=== PATIENT | male | born 1995 | race Caucasian/White ===

== ENCOUNTER 2025-02-05 20:09 | Emergency (ER) | payer SELFPAY ==
[2025-02-05 20:40] VITALS: BP 151/93; PULSE 76; RESP 16; TEMP 36.8; O2SAT 97; BMI 27.9
--- NOTE | 2025-02-05 22:09 | CT_ITS ---
PROCEDURE INFORMATION: Exam: CT Lumbar Spine Without Contrast Exam date and time: 02/05/2025 10:24 PM Age: 29 years old Clinical indication: Pain; Lumbago with sciatica; Left; Additional info: Radicular pain down back of leg L side TECHNIQUE: Imaging protocol: Computed tomography of the lumbar spine without contrast. Radiation optimization: All CT scans at this facility use at least one of these dose optimization techniques: automated exposure control; mA and/or kV adjustment per patient size (includes targeted exams where dose is matched to clinical indication); or iterative reconstruction. COMPARISON: No relevant prior studies available. FINDINGS: Limitations: Axial soft tissue window of the lumbar spine is missing. Within this limitation: Bones/joints: Minimal retrolisthesis of L5 on S1. Mild levocurvature of the lumbar spine. The alignment is otherwise maintained. The body heights are maintained. No evidence of acute fracture. Mild multilevel degenerative disc and joint disease as follows:. At L1-L2: Minimal disc bulge. The spinal canal is patent. Minimal facet arthropathy. No high-grade neural foraminal stenosis. At L2-L3: Diffuse disc bulge. Mild hypertrophy of the ligamentum flavum. No high-grade spinal canal stenosis. Bilateral facet arthrosis. No neural foraminal stenosis. At L3-L4: Minimal disc bulge. Minimal epididymal ligamentum flavum. No high-grade spinal canal stenosis. Bilateral facet arthrosis. Minimal bilateral neural foraminal narrowing. No high-grade neural foraminal stenosis. At L4-L5: Diffuse disc bulge and superimposed large left central/paracentral disc protrusion resulting in moderate or moderate to severe spinal canal stenosis on the left aspect of the spinal canal and severe left lateral recess stenosis with compression of the traversing left L5 nerve root in the left lateral recess. Bilateral facet arthropathy. Mild bilateral neural foraminal stenosis. At L5-S1: Diffuse disc bulge/disc osteophyte complex, eccentric to the left. There is minimal epidural the ligamentum flavum. There is mild spinal canal stenosis. No high-grade spinal canal stenosis. Mild left lateral recess narrowing. Bilateral facet arthrosis. Mild bilateral neural foraminal stenosis. Soft tissues: Unremarkable. IMPRESSION: Multilevel degenerative disc and joint disease of the lumbar spine as detailed level by level above, worst at L4-L5 where there is diffuse disc bulge and superimposed large left paracentral disc protrusion resulting in moderate or moderate to severe spinal canal stenosis particularly on the left side with severe left lateral recess stenosis resulting in compression on the traversing left L5 nerve root in the left lateral recess.
[2025-02-05] MEDS: KETOROLAC 30MG/ML VIAL 30 MG IM (23:00)
[2025-02-05] MEDS: ACETAMINOPHEN 500MG TAB 1000 MG PO (23:01)
[2025-02-05] MEDS: LIDOCAINE 5% TRANSDERMAL PATCH 1 EACH TD (23:01)
[2025-02-05] MEDS: METHOCARBAMOL 500MG TABLET 1000 MG PO (23:01)
--- NOTE | 2025-02-05 23:33 | ED_ITS ---
Discharge Plan Disposition Patient Disposition: Home, Self-Care Prescriptions Prescriptions: New lidocaine 4 % adhesive patch,medicated 1 patch topical DAILY PRN (Reason: pain) Qty: 30 0RF methocarbamol 500 mg tablet 1,000 mg PO Q8H PRN (Reason: muscle pain and spasm) Qty: 30 0RF Referrals Follow up/Referrals: Provider,Referral, [Primary Care Provider] - See instructions Activity Restrictions/Add. Instructions Additional Instructions/Restrictions: At this time it was felt you are safe to be discharged home. If new or worsening symptoms please do not hesitate to return the emergency department. Please take your medications as prescribed, stay off work until Friday and at Friday perform light duty until you follow-up with your family doctor on to determine a long-term plan. Talk to primary care doctor about scheduling an MRI. Do not drive or operate machinery after taking the methocarbamol. It may make you sleepy. Clinical Impressions Clinical Impression: Back pain Stand Alone Forms Stand Alone Forms: Work/School Release Print Language Print Language: Irish Discharge ED Provider: Chinmay Montgomery General Adult HPI <Chinmay Montgomery MD - Last Filed: 02/05/25 23:38> General Chief complaint: PAIN Stated complaint: lower back pain with pain down left leg Time Seen by Provider: 02/05/25 21:00 Mode of Arrival: Ambulatory Description of Symptoms (Recalled from ER Triage Doc. by RN): Pt presents with c/o left lower back pain x 2.5 weeks that radiates down his left leg. Denies numbness/tingling History of Present Illness HPI narrative: Patient is a 29-year-old male with no pertinent past medical history who presents emergency department for evaluation of back pain. 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 He had some back pain in his left lower back and was doing a stretch of hyperextension of his back on [employer] for which he acutely had worsening of his pain. His pain starts in his left paraspinal area and shoots down his buttocks down his left lower extremity. He is able to walk with pain. No significant trauma. No other acute complaints at this time. Related Data Previous Rx's ?Medication ?Instructions ?Recorded lidocaine 4 % topical patch 1 patch topical DAILY PRN pain #30 02/05/25 ea methocarbamol 500 mg tablet 1,000 mg (2 x 500 mg) PO Q8H PRN 02/05/25 muscle pain and spasm #30 tabs Allergies Allergy/AdvReac Type Severity Reaction Status Date / Time NO KNOWN ALLERGIES Allergy Uncoded 11/15/17 12:29 PFSH <Chinmay Montgomery MD - Last Filed: 02/05/25 23:38> [facility] Disclaimer: The information contained in this section may have been updated after the patient was seen, as this information can be updated by other users. Social History (Updated 02/05/25 @ 23:38 by Chinmay Montgomery MD) Smoking Status: Never smoker alcohol intake: current alcohol intake frequency: holidays/special occasions only current occupational status: other Travel in the last 8 weeks?: None Have you lived/traveled outside [place] in past 30 days?: No Contact w/someone who lives/traveled outside US past 30 days?: No Exposure to someone with infectious disease in past 14 days?: No Do you have a fever (greater than 100.4 F or 38 C)?: No Have you tested positive for COVID-19?: No Exposed to someone with COVID-19 in past 14 days?: No Do you have a sore throat?: No Do you have a cough?: No Do you have any weakness?: No Do you have any diarrhea?: No Are you experiencing any unusual bleeding?: No Do you have any muscle aches/pain?: No Do you have any abdominal pain?: No Are you experiencing loss of taste or smell?: No Other Medical History Have you received the Flu Vaccine for this season: No <Chinmay Montgomery MD - Last Filed: 02/05/25 23:38> ROS Obtained: Yes Systems reviewed as appropriate & no additional complaints except as documented Physical Exam <Chinmay Montgomery MD - Last Filed: 02/05/25 23:38> General General appearance: alert and in no apparent distress Head Head exam: atraumatic and normocephalic Eye Eye exam: Present PERRL and EOMI ENT ENT exam: Present mucous membranes moist Neck Neck exam: Present normal inspection Chest Chest inspection: Present normal inspection and symmetric chest wall rise Respiratory Respiratory exam: Absent respiratory distress Cardiovascular Cardiovascular exam: Present regular rate and normal rhythm Abdominal Exam Abdominal exam: Present soft Extremities Exam Extremities exam: Present normal inspection and other (5-5 strength bilateral lower extremities.) Back Exam Back exam: Present other (Tenderness left paraspinal lumbar region) Neurological Exam Neurological exam: Present alert and CN II-XII intact; Absent motor sensory deficit Psychiatric Psychiatric exam: Present normal affect Skin Skin exam: Present warm and dry Medical Decision Making <Chinmay Montgomery MD - Last Filed: 02/05/25 23:38> Medical Records Screening: Per USPSTF and CDC recommendations, given the prevalence of disease in our region, it is our hospital?s policy to screen for HIV and viral Hepatitis for all patients aged 18 and over and those with ongoing risk factors. Vaibhav Inquiry Pt receiving controlled substance: No Vital Signs: 02/05/25 20:40 02/06/25 01:23 Temperature 98.3 F 97.9 F Temperature Source Oral Oral Pulse Rate 74 Pulse Rate [Right] 76 Respiratory Rate 16 16 Blood Pressure 128/74 Blood Pressure [Right Arm] 151/93 H Blood Pressure Mean [Right Arm] 112 Blood Pressure Source Automatic Cuff Blood Pressure Source [Right Arm] Automatic Cuff Blood Pressure Position Sitting Blood Pressure Position [Right Arm] Sitting 02 Sat by Pulse Oximetry 97 Oxygen Delivery Method Room Air Room Air Orders (Tests/Meds): ED MEDICATIONS Discontinued Medications Generic Name Dose Route Start Last Admin Trade Name Freq PRN Reason Stop Dose Admin Acetaminophen 1,000 mg 02/05/25 22:09 02/05/25 23:01 Acetaminophen 500mg Tab PO 02/05/25 22:10 1,000 mg ONCE ONE Administration Ketorolac Tromethamine 30 mg 02/05/25 22:09 02/05/25 23:00 Ketorolac 30mg/Ml Vial IM 02/05/25 22:10 30 mg ONCE ONE Administration Lidocaine 1 each 02/05/25 22:09 02/05/25 23:01 Lidocaine 5% Transdermal Patch TD 02/05/25 22:10 1 each ONCE ONE Administration Methocarbamol 1,000 mg 02/05/25 22:11 02/05/25 23:01 Methocarbamol 500mg Tablet PO 02/05/25 22:12 1,000 mg ONCE ONE Administration ORDERS Category Date Time Status CT lumbar spine wo con Stat Cat Scan 02/05/25 22:09 Completed Medical Decision Narrative: In summary patient is a 29-year-old male with past medical history described above who presents emergency department for evaluation of back pain. Patient is hemodynamically stable nontoxic-appearing upon arrival, afebrile. Differential diagnosis includes slipped disc, sciatica, musculoskeletal strain, among others. Workup will be conducted with CT imaging of the lumbar spine. Initial interventions include multimodal pain control. CT imaging conducted and repeat evaluation pending at time of transfer of care to the oncoming physician, Dr. Mcgee. <Dacia Mcgee MD - Last Filed: 02/06/25 01:37> Vital Signs: 02/05/25 20:40 02/06/25 01:23 Temperature 98.3 F 97.9 F Temperature Source Oral Oral Pulse Rate 74 Pulse Rate [Right] 76 Respiratory Rate 16 16 Blood Pressure 128/74 Blood Pressure [Right Arm] 151/93 H Blood Pressure Mean [Right Arm] 112 Blood Pressure Source Automatic Cuff Blood Pressure Source [Right Arm] Automatic Cuff Blood Pressure Position Sitting Blood Pressure Position [Right Arm] Sitting 02 Sat by Pulse Oximetry 97 Oxygen Delivery Method Room Air Room Air Orders (Tests/Meds): ED MEDICATIONS Discontinued Medications Generic Name Dose Route Start Last Admin Trade Name Seb PRN Reason Stop Dose Admin Acetaminophen 1,000 mg 02/05/25 22:09 02/05/25 23:01 Acetaminophen 500mg Tab PO 02/05/25 22:10 1,000 mg ONCE ONE Administration Ketorolac Tromethamine 30 mg 02/05/25 22:09 02/05/25 23:00 Ketorolac 30mg/Ml Vial IM 02/05/25 22:10 30 mg ONCE ONE Administration Lidocaine 1 each 02/05/25 22:09 02/05/25 23:01 Lidocaine 5% Transdermal Patch TD 02/05/25 22:10 1 each ONCE ONE Administration Methocarbamol 1,000 mg 02/05/25 22:11 02/05/25 23:01 Methocarbamol 500mg Tablet PO 02/05/25 22:12 1,000 mg ONCE ONE Administration ORDERS Category Date Time Status CT lumbar spine wo con Stat Cat Scan 02/05/25 22:09 Completed Medical Decision Narrative: In summary patient is a 29-year-old male with past medical history described above who presents emergency department for evaluation of back pain. Patient is hemodynamically stable nontoxic-appearing upon arrival, afebrile. Differential diagnosis includes slipped disc, sciatica, musculoskeletal strain, among others. Workup will be conducted with CT imaging of the lumbar spine. Initial interventions include multimodal pain control. CT imaging conducted and repeat evaluation pending at time of transfer of care to the oncoming physician, Dr. Mcgee. Everardo: Upon my assumption of care patient is stable and resting more comfortably. I personally interpreted CT imaging and do not appreciate acute osseous injury, see radiology read for final interpretation which discusses disc injuries. On reassessment patient is ambulatory, no saddle anesthesia, no sensory deficits, no bowel or bladder incontinence or difficulty using the restroom. I believe at this time he has no red flag symptoms of back pain and is appropriate for discharge. He was prescribed lidocaine patches and methocarbamol for outpatient management of symptoms. He was instructed to follow-up closely with his primary care doctor for further evaluation including nonemergent MRI and continued management. Additionally he was given a work note to be off until Friday and then to resume light duty as tolerated until fully cleared by primary care. Patient was given instructions on symptomatic management, medication use including to not drive or operate machinery after taking Robaxin, follow up instructions, and return precautions for the emergency department. Patient indicated understanding and was discharged in stable condition. Critical Care <Chinmay Montgomery MD - Last Filed: 02/05/25 23:38> Critical Care Time Critical Care Time: No
[2025-02-06 01:23] VITALS: BP 128/74; PULSE 74; RESP 16; TEMP 36.6; O2SAT 98
[2025-02-06 01:42] VITALS: BP 138/78; PULSE 80; RESP 16; TEMP 36.6; O2SAT 97
== END 2025-02-06 01:43 | disposition home or self-care (01) ==
PROVIDERS: Emergency Provider Emergency Medicine
DX: M54.50 Low back pain, unspecified (principal); M79.605 Pain in left leg
CPT/HCPCS: 72131; 96372; 99284; J1885

== ENCOUNTER 2025-02-23 08:40 | Outpatient (CLI) | payer BC, SELFPAY ==
--- NOTE | 2025-02-23 08:46 | MR_ITS ---
FINAL REPORT TECHNIQUE: Multiplanar and multisequence imaging of the lumbar spine was obtained without contrast. CLINICAL HISTORY: ACUTE LT SIDED LOW BACK PAIN COMPARISON: CT of the lumbar spine 02/13/2025 FINDINGS: There is normal alignment of the lumbar vertebral bodies. Vertebral body height is preserved. The spinal cord ends at the level of L1. There is normal signal intensity within the substance of the distal spinal cord. No acute bone marrow edema or pathologic marrow replacement. No acute paraspinal abnormality is identified. L1-2: A mild annular bulge is present. There is no focal disc herniation, central canal stenosis or neuroforaminal narrowing. L2-3: There is no focal disc herniation, central canal stenosis or neuroforaminal narrowing. L3-4: There is no focal disc herniation, central canal stenosis or neuroforaminal narrowing. L4-5: There is a left paracentral disc protrusion which contacts and displaces the left L5 nerve root within the canal. A superimposed annular bulge is present. There is mild to moderate central canal stenosis and mild bilateral inferior foraminal narrowing. L5-S1: There is no focal disc herniation, central canal stenosis or neuroforaminal narrowing. IMPRESSION: Left paracentral L4-5 disc protrusion which contacts and displaces the left L5 nerve root in the canal. There is a superimposed annular bulge, mild to moderate canal stenosis, and mild bilateral inferior foraminal narrowing. Reviewed, Interpreted and Dictated by Luci Early MD Transcribed by Cassie Parikh Authenticated and [facility]
== END 2025-02-23 23:59 | disposition home or self-care (01) ==
LOC: RAD 08:43
PROVIDERS: PCP Pediatrics; Visit Provider Pediatrics
DX: M51.26 Other intervertebral disc displacement, lumbar region (principal); M51.369 Other intervertebral disc degeneration, lumbar region without mention of lumbar back pain or lower extremity pain; M48.061 Spinal stenosis, lumbar region without neurogenic claudication; M99.73 Connective tissue and disc stenosis of intervertebral foramina of lumbar region
CPT/HCPCS: 72148